=== PATIENT | female | born 2000 | race Caucasian/White ===

== ENCOUNTER 2023-06-27 08:00 | Outpatient (CLI) | payer OTHER ==
[2023-06-27 16:10] LABS: BILIRUBIN,URINE NEGATIVE (NEGATIVE); GLUCOSE, URINE (UA) NEGATIVE (NEGATIVE); KETONES,URINE (UA) NEGATIVE (NEGATIVE); LEUKOCYTE ESTERASE, URINE SMALL (NEGATIVE); NITRITE,URINE NEGATIVE (NEGATIVE); OCCULT BLOOD,URINE NEGATIVE (NEGATIVE); PH,URINE 7.5 PH (5.0-7.5); PROTEIN,URINE NEGATIVE (NEGATIVE); UROBILINOGEN,URINE 0.2 (NORMAL) E.U./dL (NORMAL)
[2023-06-27 16:31] LABS: BACTERIA,URINE Many /HPF (None Seen); CLARITY,URINE CLOUDY (CLEAR); RBC,URINE 0-5 /HPF (0-5); SQUAMOUS EPITHELIAL CELL,UR FEW Squamous (<= Few); WBC,URINE >25 /HPF (0-5)
== END 2023-06-27 23:59 | disposition home or self-care (01) ==
LOC: LAB.WC 08:00
PROVIDERS: ATTEND Obstetrics & Gynecology
DX: Z34.90 Encounter for supervision of normal pregnancy, unspecified, unspecified trimester (principal)
CPT/HCPCS: 81001; 87077; 87086

== ENCOUNTER 2023-07-12 18:31 | Outpatient (CLI) | payer OTHER ==
--- NOTE | 2023-07-13 09:04 | Ultrasound Report ---
PROCEDURE: OB First Trimester INDICATIONS: POSITIVE TEST OUTSIDE/PRIOR DATING DATA: Last menstrual period (LMP): 04/03/2023. LMP-based estimated date of delivery (JEROME): 01/08/2024. First dating scan (date and location): 07/12/2023. Estimated date of delivery (JEROME) from first dating scan: 01/26/2024. TECHNIQUE: Real-time scanning was performed of the fetus and maternal pelvic organs, with image documentation. COMPARISON: None. FINDINGS: Intrauterine gestational sac present. Embryo: [place]-rump length measures 4.97 cm, consistent with 11 weeks and 5 days. Heart rate: 164 bpm. Other: No perigestational fluid collection. Measurement variability in dating: +/- 4 weeks by LMP, +/- 7 days by mean sac diameter (use before 6 weeks gestation if crown-rump length not able to be measured), +/- 5 days by crown-rump length (6-12 weeks gestation). Maternal organs: Ovaries appear within normal limits. IMPRESSION: Single live intrauterine consistent with 11 weeks and 5 days. Reviewed by: Chino Monroy MD on 07/13/2023 9:03 AM PST Approved by: Chino Monroy MD on 07/13/2023 9:03 AM PST Station ID: [id number]
== END 2023-07-12 18:32 | disposition home or self-care (01) ==
LOC: DI 18:31
PROVIDERS: ATTEND Obstetrics & Gynecology
DX: Z34.91 Encounter for supervision of normal pregnancy, unspecified, first trimester (principal)

== ENCOUNTER 2023-07-16 05:01 | Outpatient (CLI) | payer OTHER | END 2023-07-19 07:20 | disposition home or self-care (01) | LOC: WFO 05:01 → FBP 07-19 07:13 → WFO 07-19 07:20 | PROVIDERS: ATTEND Obstetrics & Gynecology | DX: Z53.9 Procedure and treatment not carried out, unspecified reason (principal) ==

== ENCOUNTER 2023-07-19 07:21 | Emergency (ER) | payer OTHER ==
--- NOTE | 2023-07-19 07:29 | ED Physician Documentation ---
PD HPI NVD - Stated complaint Stated Complaint: NAUSEA/DIZZY - History obtained from History obtained from: Patient - History of Present Illness Timing - onset: Last night (Patient has had some head cold symptoms for the past week and a half. Plugging of the right ear with pressure and purulent nasal drainage. Onset of vertigo with repetitive nausea and vomiting last night continues to the morning.) Timing - duration: Hours (10) Timing - details: Abrupt onset Associated symptoms: Loss of appetite, Other (vertigo with movement). No: Fever, Abdominal pain Contributing factors: Travel (a week ago returned from visiting family. Noted ears plugged at that time.). No: Sick contact Improved by: Laying still. No: Vomiting Worsened by: Moving Similar symptoms before: Has not had sx before (Has had some related nausea particularly at night for the last several weeks. Using ondansetron as needed. No other current medications other than vitamins.) Review of Systems Constitutional: denies: Fever, Chills Ears: reports: Ear pain (right) Nose: reports: Rhinorrhea / runny nose, Sinus pressure / pain Throat: denies: Sore throat Respiratory: denies: Cough GI: denies: Abdominal Pain : reports: Now EGA (15). denies: Discharge, Vaginal bleeding PD PAST MEDICAL HISTORY - Past Medical History Cardiovascular: None Respiratory: None Endocrine/Autoimmune: None - Present Medications Home Medications: Ambulatory Orders Medication Instructions Recorded Confirmed Amoxicillin 500 mg PO TID #21 cap 07/19/23 Meclizine HCl [Motion Sickness] 25 mg PO Q6H PRN #30 tablet 07/19/23 Pyridoxine HCl (Vitamin B6) 25 mg PO TID #60 tablet 07/19/23 [Vitamin B-6] dexAMETHasone [Decadron] 4 mg PO DAILY #5 tablet 07/19/23 - Allergies Allergies/Adverse Reactions: Allergies Allergy/AdvReac Type Severity Reaction Status Date / Time No Known Drug Allergies Allergy Verified 07/19/23 07:39 PD ED PE NORMAL - Vitals Vital signs reviewed: Yes - General General: Alert and oriented X 3, Well developed/nourished, Other (repetitive vomiting, triggered more with head movement. ) - HEENT HEENT: No: Ears normal (left with fluid behind TM. Right with fluid and redness, with distorted landmarks. ) - Neck Neck: Supple, no meningeal sign, No adenopathy - Cardiac Cardiac: RRR, No murmur - Respiratory Respiratory: Clear bilaterally - Abdomen Abdomen: Soft, Non tender - Derm Derm: Normal color, Warm and dry Results - Vitals Vitals: Vital Signs - 24 hr 07/19/23 07/19/23 07:33 10:03 Temperature 36.2 C L Heart Rate 84 96 Respiratory 18 20 Rate Blood Pressure 118/84 H 97/62 O2 Saturation 100 97 Oxygen O2 Source Room air - Labs Labs: Laboratory Tests 07/19/23 07/19/23 07:53 07:53 WBC 7.7 RBC 4.36 Hgb 12.8 Hct 36.6 L MCV 83.9 MCH 29.4 MCHC 35.0 RDW 12.1 Plt Count 203 MPV 10.3 Neut # (Auto) 6.2 Lymph # (Auto) 1.2 L [place] # (Auto) 0.3 Eos # (Auto) 0.0 Baso # (Auto) 0.0 Absolute Nucleated RBC 0.00 Nucleated RBC % 0.0 Sodium 137 Potassium 3.5 Chloride 103 Carbon Dioxide 25 Anion Gap 9.0 BUN 10 Creatinine 0.6 Estimated GFR (MDRD) 127 Glucose 104 Calcium 9.5 Magnesium 1.7 Total Bilirubin 0.5 AST 18 ALT 26 Alkaline Phosphatase 58 Total Protein 7.3 Albumin 4.2 Globulin 3.1 Albumin/Globulin Ratio 1.4 Lipase 11 PD Medical Decision Making - ED course Complexity details: re-evaluated patient (reasonably well improved with IV fluids, Decadron, and PO meclizine. I did not give benzos due to (contraindicated in ).), considered differential ( and has had some nausea,e sp at nights. But now recent URI symptoms and having abrupt vertigo with position. Seems related to URI and inner ear dysfunction. ), d/w patient Departure - Departure Disposition: 01 Home, Self Care Clinical Impression: Nausea and vomiting, Volume depletion, Otitis media, Vertigo, Condition: Stable Record reviewed to determine appropriate education?: Yes Instructions: ED Otitis Media Acute Adult, ED Nausea Vomiting Follow-Up: Andrés Barnhart MD [Primary Care Provider] - [facility] [Provider Group] Prescriptions: Amoxicillin 500 mg PO TID #21 cap dexAMETHasone [Decadron] 4 mg PO DAILY #5 tablet Meclizine HCl [Motion Sickness] 25 mg PO Q6H PRN #30 tablet PRN Reason: Vertigo Pyridoxine HCl (Vitamin B6) [Vitamin B-6] 25 mg PO TID #60 tablet Comments: You were vertigo is likely originating from fluid pressure and infection in the middle and inner ear. It should improve as the inflammation and infection improve. Amoxicillin 3 times daily for the next week and Decadron steroid anti- inflammatory daily for 5 more days. For the vertigo and dizziness/nausea, use meclizine 25 mg every 6-8 hours if needed. I would suggest using it regularly 3 times a day for the next 2 to 3 days to decrease the symptoms and then changed to as needed. Regarding nausea in and general, you can add vitamin B6 2-3 times daily to help with that. Continue with the previous ondansetron/Zofran if needed for nausea as well. I sent your prescriptions to [facility]. Off work today and tomorrow. See how you feel today after that regarding back to activity. I would anticipate considerable improvement over the next 2 to 3 days and resolution by 3 to 5 days. Follow-up with your primary care or return to the ER if worsening again. Forms: Activity restrictions Discharge Date/Time: 07/19/23 10:10
[2023-07-19] MEDS ORDERED: ONDANSETRON 4 MG/2 ML VIAL IVP STA (07:46)
[2023-07-19] MEDS ORDERED: SODIUM CHLORIDE 0.9% 1,000 ML IV STA (07:46)
[2023-07-19] MEDS ORDERED: DEXAMETHASONE 10 MG/ML VIAL IVP STA (07:47)
[2023-07-19] MEDS ORDERED: MECLIZINE 12.5 MG TABLET PO STA (07:47)
[2023-07-19] MEDS ORDERED: FAMOTIDINE 20 MG/2 ML VIAL IVP STA (07:48)
[2023-07-19 08:02] LABS: BASOPHILS % (AUTO) 0.1 %; EOSINOPHILS % (AUTO) 0.1 %; HCT - HEMATOCRIT 36.6 % (37.0-47.0); HGB - HEMOGLOBIN 12.8 g/dL (12.0-16.0); LYMPHOCYTES # (AUTO) 1.2 10^3/uL (1.5-3.5); LYMPHOCYTES % (AUTO) 15.1 %; MEAN CORPUSCULAR HEMOGLOBIN 29.4 pg (27.0-31.0); MEAN CORPUSCULAR VOLUME 83.9 fL (81.0-99.0); MEAN PLATELET VOLUME 10.3 fL (7.9-10.8); MONOCYTES # (AUTO) 0.3 10^3/uL (0.0-1.0); MONOCYTES % (AUTO) 3.9 %; NEUTROPHILS # (AUTO) 6.2 10^3/uL (1.5-6.6); NEUTROPHILS % (AUTO) 80.4 %; PLT - PLATELET COUNT 203 10^3/uL (130-450); RED BLOOD COUNT 4.36 10^6/uL (4.20-5.40); RED CELL DISTRIBUTION WIDTH 12.1 % (12.0-15.0); WHITE BLOOD COUNT 7.7 x10^3/uL (4.8-10.8)
[2023-07-19 08:19] LABS: ALBUMIN 4.2 g/dL (3.2-5.5); ALBUMIN/GLOBULIN RATIO 1.4 (1.0-2.2); BILIRUBIN,TOTAL 0.5 mg/dL (0.2-1.0); CALCIUM 9.5 mg/dL (8.5-10.3); CREATININE 0.6 mg/dL (0.6-1.3); MAGNESIUM 1.7 mg/dL (1.7-2.3); POTASSIUM 3.5 mmol/L (3.5-4.5); TOTAL PROTEIN 7.3 g/dL (6.4-8.9)
[2023-07-19] MEDS ORDERED: LACTATED RINGERS 1,000 ML IV STA (08:23)
[2023-07-19] MEDS ORDERED: PROMETHAZINE INJ 12.5 MG in SODIUM CHLORIDE 0.9% 50 ML IV STA (08:29)
[2023-07-19] MEDS ORDERED: PROMETHAZINE 25 MG/1 ML VIAL ONE (08:42)
[2023-07-19] MEDS ORDERED: AMOXICILLIN 250 MG CAPSULE PO STA (09:53)
[2023-07-19 10:08] VITALS: BP 97/62; O2SAT 97
== END 2023-07-19 10:10 | disposition home or self-care (01) ==
LOC: ED 07:21
DX: O26.892 Other specified pregnancy related conditions, second trimester (principal); R42 Dizziness and giddiness; O99.891 Other specified diseases and conditions complicating pregnancy; H66.91 Otitis media, unspecified, right ear; Z3A.15 15 weeks gestation of pregnancy
CPT/HCPCS: 36415; 80053; 83690; 83735; 85025; 96365; 96375; 99283; 99284; A9270; J7040; J7120

== ENCOUNTER 2023-07-23 08:00 | Outpatient (CLI) | payer OTHER ==
[2023-07-23 18:20] LABS: CHLAMYDIA TRACHOMATIS DNA NEGATIVE (NEGATIVE); NEISSERIA GONORRHOEAE DNA NEGATIVE (NEGATIVE); TRICHOMONAS VAGINALIS DNA NEGATIVE (NEGATIVE)
== END 2023-07-23 23:59 | disposition home or self-care (01) ==
LOC: LAB.WC 08:00
PROVIDERS: ATTEND Nurse Practitioner
DX: Z34.90 Encounter for supervision of normal pregnancy, unspecified, unspecified trimester (principal)
CPT/HCPCS: 36415; 81001; 85025; 86592; 86762; 86787; 86803; 86850; 86900; 86901; 87086; 87340; 87389; 87491; 87591; 87661

== ENCOUNTER 2023-07-23 11:27 | Outpatient (CLI) | payer OTHER ==
[2023-07-23 11:42] LABS: BASOPHILS % (AUTO) 0.3 %; EOSINOPHILS % (AUTO) 0.4 %; HCT - HEMATOCRIT 33.7 % (37.0-47.0); HGB - HEMOGLOBIN 11.5 g/dL (12.0-16.0); LYMPHOCYTES % (AUTO) 36.7 %; MEAN CORPUSCULAR HEMOGLOBIN 29.2 pg (27.0-31.0); MEAN CORPUSCULAR HGB CONC 34.1 g/dL (32.0-36.0); MEAN CORPUSCULAR VOLUME 85.5 fL (81.0-99.0); MEAN PLATELET VOLUME 10.8 fL (7.9-10.8); MONOCYTES # (AUTO) 0.7 10^3/uL (0.0-1.0); MONOCYTES % (AUTO) 6.8 %; NEUTROPHILS # (AUTO) 5.9 10^3/uL (1.5-6.6); PLT - PLATELET COUNT 249 10^3/uL (130-450); RED BLOOD COUNT 3.94 10^6/uL (4.20-5.40); RED CELL DISTRIBUTION WIDTH 12.1 % (12.0-15.0); WHITE BLOOD COUNT 10.8 x10^3/uL (4.8-10.8)
[2023-07-23 11:50] LABS: BILIRUBIN,URINE NEGATIVE (NEGATIVE); GLUCOSE, URINE (UA) NEGATIVE (NEGATIVE); KETONES,URINE (UA) NEGATIVE (NEGATIVE); LEUKOCYTE ESTERASE, URINE TRACE (NEGATIVE); NITRITE,URINE NEGATIVE (NEGATIVE); OCCULT BLOOD,URINE NEGATIVE (NEGATIVE); PROTEIN,URINE TRACE mg/dL (NEGATIVE); UROBILINOGEN,URINE 1 (NORMAL) E.U./dL (NORMAL)
[2023-07-23 11:52] LABS: CLARITY,URINE CLEAR (CLEAR)
[2023-07-23 11:58] LABS: BACTERIA,URINE Few /HPF (None Seen); RBC,URINE 0-5 /HPF (0-5); SQUAMOUS EPITHELIAL CELL,UR MANY Squamous (<= Few); WBC,URINE 0-3 /HPF (0-5)
[2023-07-24 05:12] LABS: HBsAG SCREEN Negative (Negative)
[2023-07-24 06:10] LABS: RPR Non Reactive (Non Reactive)
[2023-07-24 08:10] LABS: HCV AB Non Reactive (Non Reactive)
[2023-07-24 09:09] LABS: HIV SCREEN 4TH GENERATION Non Reactive (Non Reactive); VARICELLA-ZOSTER AB IGG 172 index (Immune >165)
== END 2023-07-23 11:28 | disposition home or self-care (01) ==
LOC: LAB 11:27
PROVIDERS: ATTEND Obstetrics & Gynecology
DX: Z34.90 Encounter for supervision of normal pregnancy, unspecified, unspecified trimester (principal)
CPT/HCPCS: 36415; 81001; 85025; 86592; 86762; 86787; 86803; 86850; 86900; 86901; 87086; 87340; 87389

== ENCOUNTER 2023-08-06 08:00 | Outpatient (CLI) | payer OTHER ==
[2023-08-06 16:48] LABS: BILIRUBIN,URINE NEGATIVE (NEGATIVE); GLUCOSE, URINE (UA) NEGATIVE (NEGATIVE); KETONES,URINE (UA) NEGATIVE (NEGATIVE); LEUKOCYTE ESTERASE, URINE NEGATIVE (NEGATIVE); NITRITE,URINE NEGATIVE (NEGATIVE); OCCULT BLOOD,URINE NEGATIVE (NEGATIVE); PH,URINE 6.5 PH (5.0-7.5); PROTEIN,URINE NEGATIVE (NEGATIVE); UROBILINOGEN,URINE 0.2 (NORMAL) E.U./dL (NORMAL)
[2023-08-06 16:52] LABS: CLARITY,URINE CLEAR (CLEAR)
[2023-08-06 19:50] LABS: BACTERIAL VAGINOSIS DNA NEGATIVE (NEGATIVE); CANDIDA GLABRATA DNA NEGATIVE (NEGATIVE); CANDIDA GROUP DNA POSITIVE (NEGATIVE); CANDIDA KRUSEI DNA NEGATIVE (NEGATIVE); TRICHOMONAS VAGINALIS DNA NEGATIVE (NEGATIVE)
== END 2023-08-06 23:59 | disposition home or self-care (01) ==
LOC: LAB.WC 08:00
PROVIDERS: ATTEND Nurse Practitioner
DX: R35.0 Frequency of micturition (principal); L29.8 Other pruritus
CPT/HCPCS: 81001; 81003; 81514; 87086

== ENCOUNTER 2023-08-28 15:22 | Outpatient (CLI) | payer OTHER ==
[2023-08-31 21:07] LABS: AFP VALUE 46.5 ng/mL (.); DIA MOM 1.05 (.); DSR (BY AGE) 1 IN 1148 (.); DSR (SECOND TRIMESTER) 1 IN 265 (.); GESTAT. AGE METHOD Ultrasound (.); HCG MOM 5.09 (.); HCG VALUE 126902 mIU/mL (.); INSULIN DEP DIABETES No (.); MULTIPLE GESTATION No (.); OPEN SPINA BIFIDA RISK 1 IN 10000 (.); RACE Caucasian (.); RESULTS Report (.); TEST RESULTS *Screen Positive* (.); TRISOMY 18 RISK Not increased (.); UE3 MOM 0.52 (.); UE3 VALUE 1.46 ng/mL (.); WEIGHT 147 lbs (.)
== END 2023-08-28 15:23 | disposition home or self-care (01) ==
LOC: LAB 15:22
PROVIDERS: ATTEND Nurse Practitioner
DX: Z34.90 Encounter for supervision of normal pregnancy, unspecified, unspecified trimester (principal)
CPT/HCPCS: 36415; 81511

== ENCOUNTER 2023-09-27 12:12 | Outpatient (CLI) | payer OTHER ==
[2023-09-27 13:49] LABS: BASOPHILS % (AUTO) 0.2 %; EOSINOPHILS # (AUTO) 0.1 10^3/uL (0.0-0.7); EOSINOPHILS % (AUTO) 0.5 %; HCT - HEMATOCRIT 31.7 % (37.0-47.0); HGB - HEMOGLOBIN 10.6 g/dL (12.0-16.0); LYMPHOCYTES # (AUTO) 1.7 10^3/uL (1.5-3.5); LYMPHOCYTES % (AUTO) 17.8 %; MEAN CORPUSCULAR HEMOGLOBIN 29.7 pg (27.0-31.0); MEAN CORPUSCULAR HGB CONC 33.4 g/dL (32.0-36.0); MEAN CORPUSCULAR VOLUME 88.8 fL (81.0-99.0); MEAN PLATELET VOLUME 10.6 fL (7.9-10.8); MONOCYTES # (AUTO) 0.7 10^3/uL (0.0-1.0); MONOCYTES % (AUTO) 7.7 %; NEUTROPHILS # (AUTO) 6.9 10^3/uL (1.5-6.6); NEUTROPHILS % (AUTO) 73.2 %; PLT - PLATELET COUNT 182 10^3/uL (130-450); RED BLOOD COUNT 3.57 10^6/uL (4.20-5.40); RED CELL DISTRIBUTION WIDTH 12.8 % (12.0-15.0); WHITE BLOOD COUNT 9.4 x10^3/uL (4.8-10.8)
[2023-09-27 14:01] LABS: CALCIUM 8.7 mg/dL (8.5-10.3); CREATININE 0.5 mg/dL (0.6-1.3); POTASSIUM 3.5 mmol/L (3.5-4.5)
[2023-09-27] MEDS: ONDANSETRON ODT 4 MG TABLET TL PRN (14:36)
[2023-09-27 14:51] LABS: BILIRUBIN,URINE NEGATIVE (NEGATIVE); CLARITY,URINE SL. CLOUDY (CLEAR); GLUCOSE, URINE (UA) NEGATIVE (NEGATIVE); KETONES,URINE (UA) NEGATIVE (NEGATIVE); LEUKOCYTE ESTERASE, URINE NEGATIVE (NEGATIVE); NITRITE,URINE NEGATIVE (NEGATIVE); OCCULT BLOOD,URINE NEGATIVE (NEGATIVE); PROTEIN,URINE NEGATIVE (NEGATIVE); UROBILINOGEN,URINE 0.2 (NORMAL) E.U./dL (NORMAL)
--- NOTE | 2023-09-27 15:18 | PROVIDER PROGRESS NOTE ---
- HPI Chief Complaint: GI symptoms Current : Vital Signs Temperature 97.9 F 09/27/23 16:20 Temperature 97.9 F 09/27/23 16:20 Heart Rate Respiratory Rate Blood Pressure O2 Saturation If not protocol: Oxygen Flow, liters/minute - Procedures Procedure Details: Patient is a 22-year at 22 weeks gestation presenting for nausea and vomiting since last night. Has not been able to keep anything down. Did try 1 dose of ondansetron around 0300 but did not work so she did not take anymore. She feels good movement. No diarrhea. No fever or chills. Partner is deployed. No sick contacts that she is aware of. No contractions, leaking, bleeding. Physical Exam Constitutional: alert, no acute distress, well hydrated, well developed, well nourished, appropriate dress. Cardiovascular: Regular rate and rhythm. Respiratory: no respiratory distress. Abdomen: Gravid, nondistended, nontender, no guarding. Psych: affect and mood appropriate, normal interaction, good eye contact. Labs: WBC: 9.4, potassium: 3.5, sodium: 135. Urine is unremarkable with specific gravity 1.020. heart tracin bpm, appropriate for gestational age [place]: Quiescent 22-year-old G1, P0 at 22 weeks gestation with acute gastroenteritis 1. Gastroenteritis -Discussed this is usually lasting approximate 24 hours for most patient is currently. -Encourage small frequent sips of water. Can tolerate some time without food. He is not showing signs of dehydration right now, so she will likely be fine. Can contact us tomorrow if still problematic, however she will likely feeling much better by the morning. -Sent prescription for promethazine that she can try if the ondansetron does not work. Was able to tolerate some p.o. Intake 2. 22 weeks gestation -Follow-up for routine obstetrical care.
[2023-09-27] MEDS: PROMETHAZINE 25 MG TABLET PO STA (15:30)
[2023-09-27 16:00] LABS: AMORPHOUS SEDIMENT,UR Marked /LPF; BACTERIA,URINE Rare /HPF (None Seen); CRYSTALS,URINE 0-2 Calcium Oxalate /LPF; RBC,URINE 0-5 /HPF (0-5); SQUAMOUS EPITHELIAL CELL,UR FEW Squamous (<= Few); WBC,URINE 0-3 /HPF (0-5)
== END 2023-09-27 15:38 | disposition home or self-care (01) ==
LOC: ED 12:12 → WFO 12:12 → FBP 12:12 → EDSTATUS 13:09 → WFO 15:38
PROVIDERS: ATTEND Obstetrics & Gynecology
DX: O99.612 Diseases of the digestive system complicating pregnancy, second trimester (principal); K52.9 Noninfective gastroenteritis and colitis, unspecified; Z3A.22 22 weeks gestation of pregnancy
CPT/HCPCS: 36415; 80048; 81001; 85025; 99213; Q0162; Q0169; 87086; 99215

== ENCOUNTER 2023-10-15 10:30 | Outpatient (CLI) | payer OTHER ==
[2023-10-15 11:37] LABS: HCT - HEMATOCRIT 35.1 % (37.0-47.0); HGB - HEMOGLOBIN 11.7 g/dL (12.0-16.0); MEAN CORPUSCULAR HEMOGLOBIN 29.3 pg (27.0-31.0); MEAN CORPUSCULAR HGB CONC 33.3 g/dL (32.0-36.0); MEAN PLATELET VOLUME 10.4 fL (7.9-10.8); RED BLOOD COUNT 3.99 10^6/uL (4.20-5.40); RED CELL DISTRIBUTION WIDTH 12.3 % (12.0-15.0); WHITE BLOOD COUNT 9.7 x10^3/uL (4.8-10.8)
== END 2023-10-15 10:31 | disposition home or self-care (01) ==
LOC: LAB 10:30
PROVIDERS: ATTEND Nurse Practitioner
DX: O09.892 Supervision of other high risk pregnancies, second trimester (principal)
CPT/HCPCS: 36415; 82950; 85027

== ENCOUNTER 2023-10-19 08:00 | Outpatient (CLI) | payer OTHER ==
[2023-10-19 23:52] LABS: BACTERIAL VAGINOSIS DNA NEGATIVE (NEGATIVE); CANDIDA GLABRATA DNA NEGATIVE (NEGATIVE); CANDIDA GROUP DNA NEGATIVE (NEGATIVE); CANDIDA KRUSEI DNA NEGATIVE (NEGATIVE); TRICHOMONAS VAGINALIS DNA NEGATIVE (NEGATIVE)
== END 2023-10-19 23:59 | disposition home or self-care (01) ==
LOC: LAB.WC 08:00
PROVIDERS: ATTEND Nurse Practitioner
DX: L29.8 Other pruritus (principal)
CPT/HCPCS: 81514

== ENCOUNTER 2023-11-21 09:26 | Observation (INO) | payer OTHER ==
[2023-11-21] MEDS ORDERED: LACTATED RINGERS 1,000 ML ONE (09:49)
[2023-11-21] MEDS ORDERED: LACTATED RINGERS 1,000 ML IV SCH (10:00)
[2023-11-21 10:10] LABS: BASOPHILS % (AUTO) 0.2 %; EOSINOPHILS # (AUTO) 0.1 10^3/uL (0.0-0.7); EOSINOPHILS % (AUTO) 0.4 %; HCT - HEMATOCRIT 32.9 % (37.0-47.0); LYMPHOCYTES # (AUTO) 1.8 10^3/uL (1.5-3.5); LYMPHOCYTES % (AUTO) 14.3 %; MEAN CORPUSCULAR HEMOGLOBIN 28.3 pg (27.0-31.0); MEAN CORPUSCULAR HGB CONC 33.4 g/dL (32.0-36.0); MEAN CORPUSCULAR VOLUME 84.6 fL (81.0-99.0); MEAN PLATELET VOLUME 10.8 fL (7.9-10.8); MONOCYTES # (AUTO) 0.8 10^3/uL (0.0-1.0); MONOCYTES % (AUTO) 6.4 %; NEUTROPHILS # (AUTO) 9.7 10^3/uL (1.5-6.6); NEUTROPHILS % (AUTO) 77.9 %; PLT - PLATELET COUNT 192 10^3/uL (130-450); RED BLOOD COUNT 3.89 10^6/uL (4.20-5.40); RED CELL DISTRIBUTION WIDTH 12.9 % (12.0-15.0); WHITE BLOOD COUNT 12.5 x10^3/uL (4.8-10.8)
[2023-11-21] MEDS ORDERED: ONDANSETRON 4 MG/2 ML VIAL IVP PRN (10:20)
[2023-11-21] MEDS: LACTATED RINGERS 1,000 ML IV ONE (10:25)
[2023-11-21 10:27] LABS: INR 1.1 (0.8-1.2)
[2023-11-21 10:46] LABS: PARTIAL THROMBOPLASTIN TIME 22.7 secs (24.9-33.3)
[2023-11-21 10:47] VITALS: BP 121/76
[2023-11-21] MEDS ORDERED: CALCIUM GLUC IV ONE (11:25)
[2023-11-21] MEDS ORDERED: [UNRECOGNIZED DRUG - OTHER] IV ONE (11:25)
[2023-11-21] MEDS: MAGNESIUM SULFATE 4 GRAM 4 GM/50 ML BAG IV ONE (11:34)
--- NOTE | 2023-11-21 11:50 | HISTORY & PHYSICAL EXAMINATION ---
Admit History - Visit Reason Visit Reason: Bleeding - moderate (and contractions) - : 1 Care: positive: [facility] Risk/History: positive: None Complications This : positive: Placental abruption Smoking Status: Never smoker - Mother's Labs Mother's Blood Type: positive: O Mother's RH: positive: Positive GBS: positive: Other (not done yet) Rubella Status: positive: Immune - Other Maternal History Other Maternal History: presents with bleeding, soaked thru her clothes. came in for evaluation. still flowing on arrival. has not felt baby move much in past day but reactive tracing here. feels some strong contractions. thought the were just marianna Cantu. no dizziness. Past Surgical History: Reviewed and updated today: Tonsellectomy surgical drainage of skin abscess on nipple from piercing. 04/2023 Medical history only mental health issues. Medications: pepcid, zofran zoloft 100 mg daily, vitamins, iron allergies: none OB Initial Intake Information Race: White Marital status: Single Occupation: outside work Type of work: [employer] Number of children at home: 0 FOB Information /Father of baby: Shelton Avila FOB occupation [employer] Menstrual Hx/EDC LMP (date): 04/03/2023 Menarche: 15 years Menstrual flow 7 days On BCP's at conception: no Date of positive (+) home preg. test: 05/20/2023 LMP: 04/03/2023 JEROME by LMP: 01/08/2024 07/12/2023 /11+5 / NOT C/W dates Final JEROME: 01/26/2024 sex: It's a GIRL!!! FOB: Shelton Avila, not . He is deployed on the [employer] in [place]. she is also active duty [place]. from [place] chorioid plexus cysts found on non-diagnostic u/s, appears to be resolved at time of FAS. Confirmed with on-site radiologist. Pre- Weight:144.8 BMI: 22.10 Blood type: O+ Rh: Positive Antibody: NEGATIVE CBC: PLT 249 HCT: 33.7 HGB 11.5 RUB: IMMUNE VZV: IMMUNE HBsAg: NEGATIVE HepC: NR RPR/AB-EIA: NR HIV: NR PAP: Pap @ PP GC/CT: 07/23/2023 Negative HSV:Denies in self and partner Genetic testin/13 QUAD screen negative Covid:virus x2 vax x2 Flu:2022 FAS: 09/18/2023 Placenta: Anterior Cord: 3VC FRANK: 13.5cm EFW: 386g; 20.5 %tile 50gm OGCT: 10/15/23: 106 3HR GTT: TDAP:10/31 Breast Pump:10/31 Antibody screen: 3rd trimester PLT 214 HCT 35.1 HGB 11.7 3rd trimester HIV GBS: Delivery plan: MOD: [facility]24 Gestation 30 Weeks and 4 Days 1 Para 0 Vital Signs Temperature 97.7 F 11/21/23 09:33 Heart Rate 89 11/21/23 09:33 Respiratory Rate 18 11/21/23 09:33 Blood Pressure 137/85 H 11/21/23 09:33 Temperature 97.7 F 11/21/23 10:38 Heart Rate 97 11/21/23 10:38 Respiratory Rate 18 11/21/23 10:38 Blood Pressure 121/76 11/21/23 10:38 O2 Saturation If not protocol: Oxygen Flow, liters/minute - NST Procedure NST Procedure Start Date 11/21/23 Start Time 09:32 Stop Time 10:02 Vibroacoustic Stimulation Used No Patient States Movement Yes Meds/Allgy - Home Medications Home Medications: Ambulatory Orders Medication Instructions Recorded Confirmed Amoxicillin 500 mg PO TID #21 cap 07/19/23 Meclizine HCl [Motion Sickness] 25 mg PO Q6H PRN #30 tablet 07/19/23 Pyridoxine HCl (Vitamin B6) 25 mg PO TID #60 tablet 07/19/23 [Vitamin B-6] dexAMETHasone [Decadron] 4 mg PO DAILY #5 tablet 07/19/23 Promethazine Supp [Phenergan Supp] 12.5 mg SC Q6HR PRN #10 supp 09/27/23 - Allergies Allergies/Adverse Reactions: Allergies Allergy/AdvReac Type Severity Reaction Status Date / Time No Known Drug Allergies Allergy Verified 07/19/23 07:39 Physical - Abdominal Exam Vital Signs: Temp Pulse Resp BP Pulse Ox O2 Flow Rate 97.7 F 97 18 121/76 11/21/23 10:38 11/21/23 10:38 11/21/23 10:38 11/21/23 10:38 Contraction Frequency (min/apart): q 2-3 Contraction Intensity: positive: Mild Uterine Resting Tone: positive: Soft - Monitoring Strip Review: positive: Category I - Presentation Presentation: positive: Vertex - Vaginal Exam Membranes: positive: Membranes intact Dilation (in cm): closed Effacement (%): thin and very soft Station: positive: -1 Cervical Position: positive: Midposition - Speculum Exam Speculum Exam Performed: positive: No - Other Notes Labor Progress Note/Additional Text: uncomfortable with contractions. Plan for Labor - Plan For Labor I expect patient to be DC'd or transferred within 96 hours.: Yes Plan for Labor: Ultrasound with growth at 6%ile. AC is small 3.7%. BPD and head circ are normal placenta with area consistent with abruption about 5.8 x 4.1 cm. per radiologist. Assessment: placental abruption at 30 weeks. Urgent transfer to by helicopter. Betamethasone given. Magnesium 4 gm load and then 2 gm an hour. discussed with Trena Harden MD. 2 IVs. cervix closed.
--- NOTE | 2023-11-21 11:53 | Ultrasound Report ---
PROCEDURE: OB Follow up INDICATIONS: bleeding at 30 wk. check weight, fluid, placenta OUTSIDE/PRIOR DATING DATA: Last menstrual period (LMP): 04/03/2023. LMP-based estimated date of delivery (JEROME): 01/08/2024. First dating scan (date and location): 07/12/2023. Estimated date of delivery (JEROME) from first dating scan: 01/26/2024. The below data below was generated using the working JEROME of 01/26/2024. TECHNIQUE: Real-time scanning was performed of the fetus, with image documentation and biometric measurements. Endovaginal scanning: Not performed. COMPARISON: OB ultrasound, 09/18/2023 and 07/04/2023.. FINDINGS: General: A single living intrauterine gestation is present. Presentation: Vertex Placenta: Placental position is anterior, without previa. The inferior edge of the placenta is sligh tly lifted. There is a heterogeneous, avascular mass adjacent to the inferior aspect of placenta, com patible with a hematoma. The findings are suspicious for placental abruption. Amniotic fluid index: 14.7 cm, largest pocket 4.3 cm. heart rate: 147 beats per minute. Maternal cervical canal: Closed measuring 3.2 cm long; normal length is 2.5 cm or more. biometrics: Biparietal diameter: 7.9 cm; 32 weeks 0 days; 80.7% Head circumference: 29.1 cm; 32 weeks 1 day; 59.8% Abdominal circumference: 24.2 cm; 28 weeks; 3.7% Femur length: 5.4 cm; 28 weeks 5 days; 3.9% Estimated gestational age from initial scan: 30 weeks 4 days. Composite gestational age from present scan: 30 weeks 2 days Estimated weight and percentile: 1345.1 g; 6.4% for gestational age. Measurement variability in biometric dating: +/- 10 days from 12-20 weeks gestation, +/- 2 weeks from 20-30 weeks gestation, +/- 3 weeks at 30 weeks gestation or more. IMPRESSION: 1. A single living IUP is redemonstrated. 2. The ultrasound findings are suspicious for placenta abruption. There is a heterogeneous, avascular mass adjacent to the inferior aspect of the placenta, compatible with a hematoma. 3. The overall growth is within normal limits. 4. Abdominal circumference and femur length are at 3.7% and 3.9% respectively. 5. The estimated weight is 6.4% for gestational age. 6. Normal FRANK. The result was discussed with Dr. Katz. Reviewed by: Sunshine Heath MD on 11/21/2023 11:52 AM PDT Approved by: Sunshine Heath MD on 11/21/2023 11:52 AM PDT Station ID: [id number]
[2023-11-21] MEDS: BETAMETHASONE 30 MG/5 ML VIAL IM ONE (11:54)
[2023-11-21] MEDS: MAGNESIUM SULFATE IN WATER 20 GM/500 ML IV.SOLN IV SCH (11:55)
--- NOTE | 2023-11-21 19:37 | DISCHARGE SUMMARY ---
"Discharge Summary Admit Date: 11/21/23 Discharge Date: 11/21/23 Discharging Provider: Conchita Katz MD Code Status: Attempt Resuscitation Condition at Discharge: Stable Discharge Disposition: 02 Transfer Acute Care Hosp Discharge Facility Name: [facility] - DIAGNOSES Admission Diagnoses: placental abruption at 30 weeks Discharge Diagnoses with Status of Each Condition: placenta abruption at 30 weeks. stable at time of transfer with reassuring well being. baby with growth restriction at 6th%ile - HPI History of Present Illness: sitting in class today and started bleeding. no trauma. denies drug use. Came to hospital. was otherwise uncomplicated. - CONSULTS | PROCEDURES Procedures: iv hydration and medications - HOSPITAL COURSE Hospital Course: patient was admitted for observation and assessed. She and baby were both stable. She was segundo about every 2-3 minutes. She was painful with contractions. Bleeding continued but was not excessive, just way more than nor mal. IV magnesium was started. betamethasone was given. transfer to was arranged and she was sent by helicopter. prior to leaving her cervix was closed but cervix was thin and JORDANA was bulging and very soft. labs were pretty normal. Ultrasound was done and showed baby was small and that there was a clot consistent with abruption. - ALLERGIES Allergies/Adverse Reactions: Allergies Allergy/AdvReac Type Severity Reaction Status Date / Time No Known Drug Allergies Allergy Verified 07/19/23 07:39 - MEDICATIONS Home Medications: Ambulatory Orders Medication Instructions Recorded Confirmed Amoxicillin 500 mg PO TID #21 cap 07/19/23 Meclizine HCl [Motion Sickness] 25 mg PO Q6H PRN #30 tablet 07/19/23 Pyridoxine HCl (Vitamin B6) 25 mg PO TID #60 tablet 07/19/23 [Vitamin B-6] dexAMETHasone [Decadron] 4 mg PO DAILY #5 tablet 07/19/23 Promethazine Supp [Phenergan Supp] 12.5 mg GA Q6HR PRN #10 supp 09/27/23 - PHYSICAL EXAM AT DISCHARGE General Appearance: positive: No acute distress Respiratory: positive: No respiratory distress Cardiovascular: positive: Regular rate & rhythm Abdomen: positive: Non-tender Extremities: positive: Non-tender Neurologic/Psychiatric: positive: Oriented x3 - LABS Result Diagrams: 11/21/23 09:58 - DIAGNOSTIC IMAGING Diagnostic Imaging Results: Final report reviewed, Discussed with radiologist, Read independently - FOLLOW UP Follow Up: after [facility] discharge as needed. - TIME SPENT Time Spent in Discharge (Minutes): 90"
[2023-11-22 13:11] LABS: RPR Non Reactive (Non Reactive)
== END 2023-11-21 12:15 | disposition home or self-care (01) ==
LOC: WFO 09:26 → FBP 09:32 → WFO 09:36 → FBP 09:37 → WFO 12:15
PROVIDERS: ADMIT Obstetrics & Gynecology; ATTEND Obstetrics & Gynecology
DX: O45.93 Premature separation of placenta, unspecified, third trimester (principal); Z3A.30 30 weeks gestation of pregnancy; Z91.85 Personal history of military service; Z11.3 Encounter for screening for infections with a predominantly sexual mode of transmission
CPT/HCPCS: 36415; 76816; 85025; 85384; 85610; 85730; 86592; 86850; 86900; 86901; 96365; 96372; G0378; J7120; 59025; 85460; 86780; 96376; J3475

== ENCOUNTER 2023-11-28 09:40 | Emergency (ER) | payer OTHER ==
--- NOTE | 2023-11-28 10:26 | ED Physician Documentation ---
PD HPI ABD PAIN - Stated complaint Stated Complaint: CHEST PX,VOMITING - Chief complaint Chief Complaint: Abd Pain - History obtained from History obtained from: Patient - Additional information Additional information: G1, P0 at 31 weeks has been having increasing trouble with GERD and heartburn in this . Over the last couple days has had severe heartburn with random vomiting. She is just vomiting up stomach acid and is not nauseous per se. [facility] for bleeding which has resolved. Positive motion. PD PAST MEDICAL HISTORY - Past Medical History Cardiovascular: None Respiratory: None Endocrine/Autoimmune: None - Past Surgical History Past Surgical History: No - Present Medications Home Medications: Ambulatory Orders Medication Instructions Recorded Confirmed Omeprazole 40 mg PO DAILY #30 cap 11/28/23 Pnv No.95/Ferrous Fum/Folic AC 1 tab PO DAILY 11/28/23 11/28/23 [ [place]] Sertraline HCl 100 mg PO DAILY 11/28/23 11/28/23 Sucralfate [Carafate] 1 gm PO ACHS #60 tablet 11/28/23 - Allergies Allergies/Adverse Reactions: Allergies Allergy/AdvReac Type Severity Reaction Status Date / Time No Known Drug Allergies Allergy Verified 11/28/23 09:48 - Social History Does the pt smoke?: No Smoking Status: Never smoker Does the pt drink ETOH?: No Does the pt have substance abuse?: No - Immunizations Immunizations are current?: Yes - POLST Patient has POLST: No PD ED PE NORMAL - Vitals Vital signs reviewed: Yes - General General: Alert and oriented X 3, No acute distress - Cardiac Cardiac: RRR, No murmur - Respiratory Respiratory: No respiratory distress, Clear bilaterally - Abdomen Abdomen: Non tender, Other (Bedside ultrasound demonstrates single live intrauterine with heart rate 144) - Derm Derm: Normal color, Warm and dry - Neuro Neuro: Alert and oriented X 3 Results - Vitals Vitals: Vital Signs - 24 hr 11/28/23 09:43 Temperature 36.0 C L Heart Rate 129 H Respiratory 20 Rate Blood Pressure 125/82 H O2 Saturation 98 Oxygen O2 Source Room air - EKG (time done) 1005 EKG releavant findings:: EKG personally interpreted by author of this note. Relevant findings are: Rate: Rate (enter#) (96) Rhythm: NSR [place]: Normal Intervals: Normal CA QRS: Normal Ischemia: Normal ST segments - Labs Labs: Laboratory Tests 11/28/23 11/28/23 10:30 10:30 WBC 13.6 H RBC 3.79 L Hgb 10.7 L Hct 32.0 L MCV 84.4 MCH 28.2 MCHC 33.4 RDW 13.5 Plt Count 189 MPV 10.7 Neut # (Auto) 10.0 H Lymph # (Auto) 1.8 [place] # (Auto) 1.3 H Eos # (Auto) 0.1 Baso # (Auto) 0.0 Absolute Nucleated RBC 0.00 Nucleated RBC % 0.0 Sodium 133 L Potassium 3.7 Chloride 104 Carbon Dioxide 23 Anion Gap 6.0 BUN 10 Creatinine 0.5 L Estimated GFR (MDRD) 157 Glucose 89 Calcium 9.4 Total Bilirubin 0.3 AST 16 ALT 15 Alkaline Phosphatase 82 Total Protein 6.4 Albumin 3.7 Globulin 2.7 Albumin/Globulin Ratio 1.4 PD Medical Decision Making - ED course ED course: She presents for what sounds like reflux in . She has chest pain so PE was considered especially since she is and tachycardic. That seems less likely now as she is not short of breath. After the administration of a GI cocktail her pain resolved as did her tachycardia so PE is deemed much less likely. CBC showing expected changes of specifically mild leukocytosis and anemia. CMP grossly unremarkable. She was administered IV fluids and Protonix as well here. Departure - Departure Disposition: Home, Self Care Clinical Impression: Gastroesophageal reflux disease Condition: Good Record reviewed to determine appropriate education?: Yes Instructions: ED GERD Prescriptions: Sucralfate [Carafate] 1 gm PO ACHS #60 tablet Omeprazole 40 mg PO DAILY #30 cap Comments: Follow-up with your nurse practitioner on Sunday as scheduled. Return for new or worsening symptoms. [facility] [place]. Forms: PCP List
[2023-11-28] MEDS: SODIUM CHLORIDE 0.9% 1,000 ML IV STA ×2 (10:30→11:07)
[2023-11-28] MEDS: MAG HYDROX/AL HYDROX/SIMETH 30 ML UDC PO STA (10:38)
[2023-11-28] MEDS: PANTOPRAZOLE 40 MG VIAL IVP STA (10:38)
[2023-11-28] MEDS: LIDOCAINE VISCOUS 2% 15 ML UDC MM STA (10:38)
[2023-11-28 10:41] LABS: BASOPHILS % (AUTO) 0.3 %; EOSINOPHILS # (AUTO) 0.1 10^3/uL (0.0-0.7); EOSINOPHILS % (AUTO) 0.4 %; HGB - HEMOGLOBIN 10.7 g/dL (12.0-16.0); LYMPHOCYTES # (AUTO) 1.8 10^3/uL (1.5-3.5); LYMPHOCYTES % (AUTO) 13.1 %; MEAN CORPUSCULAR HEMOGLOBIN 28.2 pg (27.0-31.0); MEAN CORPUSCULAR HGB CONC 33.4 g/dL (32.0-36.0); MEAN CORPUSCULAR VOLUME 84.4 fL (81.0-99.0); MEAN PLATELET VOLUME 10.7 fL (7.9-10.8); MONOCYTES # (AUTO) 1.3 10^3/uL (0.0-1.0); MONOCYTES % (AUTO) 9.7 %; NEUTROPHILS % (AUTO) 73.6 %; PLT - PLATELET COUNT 189 10^3/uL (130-450); RED BLOOD COUNT 3.79 10^6/uL (4.20-5.40); RED CELL DISTRIBUTION WIDTH 13.5 % (12.0-15.0); WHITE BLOOD COUNT 13.6 x10^3/uL (4.8-10.8)
[2023-11-28 10:55] LABS: ALBUMIN 3.7 g/dL (3.2-5.5); ALBUMIN/GLOBULIN RATIO 1.4 (1.0-2.2); BILIRUBIN,TOTAL 0.3 mg/dL (0.2-1.0); CALCIUM 9.4 mg/dL (8.5-10.3); CREATININE 0.5 mg/dL (0.6-1.3); POTASSIUM 3.7 mmol/L (3.5-4.5); TOTAL PROTEIN 6.4 g/dL (6.4-8.9)
[2023-11-28 12:08] VITALS: BP 126/86; O2SAT 99
== END 2023-11-28 11:51 | disposition home or self-care (01) ==
LOC: ED 09:40
DX: O26.893 Other specified pregnancy related conditions, third trimester (principal); Z3A.31 31 weeks gestation of pregnancy; K21.9 Gastro-esophageal reflux disease without esophagitis; Z79.899 Other long term (current) drug therapy
CPT/HCPCS: 36415; 80053; 85025; 93005; 96361; 96374; 99283; A9270

== ENCOUNTER 2023-12-06 10:38 | Outpatient (CLI) | payer OTHER ==
[2023-12-06 11:01] VITALS: BP 113/72; O2SAT 97
--- NOTE | 2023-12-06 12:18 | PROCEDURE REPORT ---
- HPI Diagnosis/Indication for NST: Other (Placental abruption) Current EDU 01/26/24 Gestation 32 Weeks and 5 Days 1 Para 0 Vital Signs Temperature 98.4 F 12/06/23 10:54 Heart Rate 87 12/06/23 10:54 Respiratory Rate 16 12/06/23 10:54 Blood Pressure 113/72 12/06/23 10:54 O2 Saturation 97 12/06/23 10:54 Temperature 98.4 F 12/06/23 10:54 Heart Rate 87 12/06/23 10:54 Respiratory Rate 16 12/06/23 10:54 Blood Pressure 113/72 12/06/23 10:54 O2 Saturation 97 12/06/23 10:54 If not protocol: Oxygen Flow, liters/minute - NST Procedure NST Procedure Start Date 12/06/23 Start Time 10:47 Stop Time 11:21 Vibroacoustic Stimulation Used No Patient States Movement Yes EFM: 150s, moderate variability, positive accelerations 15x15, no decelerations [place]: No contractions NST reactive/Cat 1 Performed and read 12/06/23 - Results and Plan Findings/Impression: 22yo at 32.5w sent from office for tachycardia noted on NST, scheduled for monitoring for placental abruption complicating - NST reactive - Follow up as scheduled 12/13/23
== END 2023-12-06 11:25 | disposition home or self-care (01) ==
LOC: WFO 10:38 → FBP 10:39 → WFO 11:25
PROVIDERS: ATTEND Obstetrics & Gynecology
DX: O45.93 Premature separation of placenta, unspecified, third trimester (principal); O36.8330 Maternal care for abnormalities of the fetal heart rate or rhythm, third trimester, not applicable or unspecified; Z3A.32 32 weeks gestation of pregnancy
CPT/HCPCS: 59025; 99214

== ENCOUNTER 2023-12-10 09:56 | Outpatient (CLI) | payer OTHER ==
[2023-12-10 10:28] VITALS: BP 116/70
--- NOTE | 2023-12-13 09:23 | PROCEDURE REPORT ---
- HPI Diagnosis/Indication for NST: Other (Placental abruption) Current EDU 01/26/24 Gestation 33 Weeks and 2 Days 1 Para 0 Vital Signs Temperature 98.1 F 12/10/23 10:10 Heart Rate 110 H 12/10/23 10:10 Respiratory Rate 17 12/10/23 10:10 Blood Pressure 116/70 12/10/23 10:10 Temperature 98.1 F 12/10/23 10:10 Heart Rate 110 H 12/10/23 10:10 Respiratory Rate 17 12/10/23 10:10 Blood Pressure 116/70 12/10/23 10:10 O2 Saturation If not protocol: Oxygen Flow, liters/minute - NST Procedure NST Procedure Start Date 12/10/23 Start Time 10:06 Stop Time 10:30 Vibroacoustic Stimulation Used No Patient States Movement Yes - Results and Plan Findings/Impression: Reactive Plan: Follow up as scheduled.
== END 2023-12-10 10:30 | disposition home or self-care (01) ==
LOC: WFO 09:56 → FBP 09:59 → WFO 10:30
PROVIDERS: ATTEND Obstetrics & Gynecology
DX: O45.93 Premature separation of placenta, unspecified, third trimester (principal); Z3A.33 33 weeks gestation of pregnancy
CPT/HCPCS: 59025

== ENCOUNTER 2023-12-18 16:47 | Outpatient (CLI) | payer OTHER ==
--- NOTE | 2023-12-19 11:06 | Ultrasound Report ---
PROCEDURE: OB Follow up INDICATIONS: PLACENTAL ABRUPTION OUTSIDE/PRIOR DATING DATA: Last menstrual period (LMP): 04/03/2023. LMP-based estimated date of delivery (JEROME): 01/08/2024. First dating scan (date and location): 07/12/2023. Estimated date of delivery (JEROME) from first dating scan: 01/26/2024. The below data below was generated using the ultrasound JEROME of 01/26/2024 TECHNIQUE: Real-time scanning was performed of the fetus, with image documentation and biometric measurements. Endovaginal scanning: Not performed. COMPARISON: 11/21/2023, 07/12/2023 FINDINGS: General: A single living intrauterine gestation is present. Presentation: Vertex Placenta: Placental position is anterior, without previa. Amniotic fluid index: 16.5 cm, within normal limits for gestational age. heart rate: 141 beats per minute. Maternal cervical canal not imaged. biometrics: Biparietal diameter: 8.9 cm, 35 weeks 6 days, 86 percentile Head circumference: 32.2 cm, 36 weeks 3 days, 66 percentile Abdominal circumference: 28.2 cm, 32 weeks 1 day, 5.6 percentile Femur length: 6.2 cm, 32 weeks 2 days, 4.0 percentile Estimated gestational age from initial scan: 34 weeks 3 days Composite gestational age from present scan: 34 weeks 1 day Estimated weight and percentile: 2089.3 g, 11.2 percentile Measurement variability in biometric dating: +/- 10 days from 12-20 weeks gestation, +/- 2 weeks from 20-30 weeks gestation, +/- 3 weeks at 30 weeks gestation or more. Other: Prominent placental [place]. IMPRESSION: Single living intrauterine at 34 weeks 3 days, JEROME of 01/26/2024. Estimated weight of 2089 g, 11th percentile. Reviewed by: Brenton Daniels MD on 12/19/2023 11:05 AM PDT Approved by: Brenton Daniels MD on 12/19/2023 11:05 AM PDT Station ID: [id number]
== END 2023-12-18 16:48 | disposition home or self-care (01) ==
LOC: DI 16:47
PROVIDERS: ATTEND Nurse Practitioner
DX: O45.93 Premature separation of placenta, unspecified, third trimester (principal); Z3A.34 34 weeks gestation of pregnancy

== ENCOUNTER 2024-01-10 08:00 | Outpatient (CLI) | payer OTHER | END 2024-01-10 23:59 | disposition home or self-care (01) | LOC: LAB.WC 08:00 | PROVIDERS: ATTEND Obstetrics & Gynecology | DX: Z36.85 Encounter for antenatal screening for Streptococcus B (principal) | CPT/HCPCS: 87077; 87081; 87181; 87797 ==

== ENCOUNTER 2024-01-15 15:34 | Inpatient (IN) | payer OTHER ==
[2024-01-15 16:31] LABS: BASOPHILS % (AUTO) 0.3 %; EOSINOPHILS % (AUTO) 0.4 %; HCT - HEMATOCRIT 38.8 % (37.0-47.0); HGB - HEMOGLOBIN 12.8 g/dL (12.0-16.0); LYMPHOCYTES # (AUTO) 2.4 10^3/uL (1.5-3.5); LYMPHOCYTES % (AUTO) 21.6 %; MEAN CORPUSCULAR HEMOGLOBIN 28.2 pg (27.0-31.0); MEAN CORPUSCULAR VOLUME 85.5 fL (81.0-99.0); MEAN PLATELET VOLUME 12.5 fL (7.9-10.8); MONOCYTES # (AUTO) 0.9 10^3/uL (0.0-1.0); MONOCYTES % (AUTO) 7.9 %; NEUTROPHILS # (AUTO) 7.6 10^3/uL (1.5-6.6); NEUTROPHILS % (AUTO) 69.1 %; PLT - PLATELET COUNT 164 10^3/uL (130-450); RED BLOOD COUNT 4.54 10^6/uL (4.20-5.40)
[2024-01-15 16:35] LABS: RUPTURE OF MEMBRANES PLUS POSITIVE (NEGATIVE)
[2024-01-15 16:43] LABS: CREATININE,URINE 97.7 mg/dL; PROTEIN/CREATININE RATIO,URINE 0.2 (<=0.2)
[2024-01-15] MEDS ORDERED: METHYLERGONOVINE 0.2 MG/ML VIAL IM PRN (16:43)
[2024-01-15] MEDS ORDERED: OXYTOCIN 10 UNIT/ML VIAL IM PRN (16:43)
[2024-01-15] MEDS ORDERED: TERBUTALINE 1 MG/ML VIAL SUBQ PRN (16:43)
[2024-01-15] MEDS ORDERED: fentaNYL 100 MCG/2 ML VIAL IVP PRN (16:43)
[2024-01-15] MEDS ORDERED: miSOPROStoL 200 MCG TABLET PR PRN (16:43)
[2024-01-15] MEDS ORDERED: SODIUM CHLORIDE FLUSH 0.9% 10 ML SYRINGE IVP PRN (16:43)
[2024-01-15] MEDS ORDERED: CARBOPROST TROMETHAMINE 250 MCG/ML VIAL IM PRN (16:43)
[2024-01-15] MEDS ORDERED: miSOPROStoL 200 MCG TABLET BC PRN (16:43)
[2024-01-15] MEDS ORDERED: TRANEXAMIC ACID IN NACL 1,000 MG/100 ML BAG IV PRN (16:43)
[2024-01-15] MEDS ORDERED: lidocaine 1% 20 ML MDV ID PRN (16:43)
[2024-01-15 16:45] LABS: ALBUMIN 3.6 g/dL (3.2-5.5); ALBUMIN/GLOBULIN RATIO 1.3 (1.0-2.2); BILIRUBIN,TOTAL 0.4 mg/dL (0.2-1.0); CALCIUM 9.8 mg/dL (8.5-10.3); CREATININE 0.6 mg/dL (0.6-1.3); POTASSIUM 4.2 mmol/L (3.5-4.5); TOTAL PROTEIN 6.3 g/dL (6.4-8.9)
[2024-01-15] MEDS: ONDANSETRON 4 MG/2 ML VIAL IVP PRN (17:07)
[2024-01-15] MEDS: AMPICILLIN 2 GM in SODIUM CHLORIDE 0.9% MINIBAG 100 ML IV ONE (17:12)
[2024-01-15] MEDS: LACTATED RINGERS 1,000 ML IV PRN (17:13)
--- NOTE | 2024-01-15 17:17 | HISTORY & PHYSICAL EXAMINATION ---
Admit History - Visit Reason Visit Reason: Membranes rupture - : 1 Parity: 0 Premature: 0 Ectopic: 0 : 0 Care: positive: [facility] Risk/History: positive: Other Smoking Status: Never smoker - Mother's Labs Mother's Blood Type: positive: O Mother's RH: positive: Positive GBS: positive: Group B Strep Positive Rubella Status: positive: Immune - Other Maternal History Other Maternal History: HPI: This 23 yo @ 38+4 weeks by LMP and confirmed by 11+5 week ultrasound. She slept last night but started to contract more this morning. Taft her water break (with a gush of fluid) about 14:30 today. Clear fluid, continued to leak. Presented to L&D at about 16:00. Upon arrival her cervix was 3/90/-2 and vertex with ruptured membranes. GBS positive, no antibiotic allergies. GBS prophylaxis started with ampicillin. She desired to relax and get settled in her labor room but will likely desire an epidural soon. Feels contractions are getting stronger and closer together. No Headache, visual changes or right upper quadrant abdominal pain. Denies urinary urgency or dysuria. She has been a patient of [facility] for the duration of her . She had an episode of heavy vaginal bleeding at 31 weeks with regular, mild contractions. A clot was found on ultrasound consistent with, and she was managed as having, an abruption. She had a week long inpatient stay at [facility] and was discharged home/ back to [facility]. She has received surveillance per guidelines. Will accept blood products in the event of an emergency. ROS: All other symptoms reviewed and were negative except per HPI. LMP: 04/03/2023 JEROME by LMP: 01/08/2024 07/12/2023 /11+5 / NOT C/W dates Final JEROME: 01/26/2024 serial Exams agree Medical Hx: gastric reflux (managed by omprazole) mild anemia (taking ferrous sulfate) and depression (sertraline 100mg) Surgical Hx: None Social Hx: Monogamous with male partner. Stopped drinking alcohol due to . Denies current use of tobacco, marijuana or other recreational drugs. Former tobacco user. Reports that she is safe in current relationship. Family Hx: Denies family history of congenital anomalies, Cystic Fibrosis or chromosomal abnormalities sex: It's a GIRL!!! FOB: Shelton Avila she is also active duty [place]. from [place] chorioid plexus cysts found on non-diagnostic u/s, appears to be resolved at time of FAS. Confirmed with on-site radiologist. Pre- Weight:144.8 BMI: 22.10 Blood type: O+ Rh: Positive Antibody: NEGATIVE CBC: PLT 249 HCT: 33.7 HGB 11.5 RUB: IMMUNE VZV: IMMUNE HBsAg: NEGATIVE HepC: NR RPR/AB-EIA: NR HIV: NR PAP: Pap @ PP GC/CT: 07/23/2023 Negative HSV:Denies in self and partner Genetic testin/13 QUAD screen negative Covid:virus x2 vax x2 Flu:2022 FAS: 09/18/2023 Placenta: Anterior Cord: 3VC FRANK: 13.5cm EFW: 386g; 20.5 %tile 50gm OGCT: 10/15/23: 106 TDAP:10/31 Breast Pump:10/31 3rd trimester PLT 214 HCT 35.1 HGB 11.7 Physical exam: Normocephalic, atraumatic Heart RRR w/o M/G/R Lungs CTAB Abdomen gravid, soft, nontender. EFW 3000g FHR baseline X, moderate variability, + accelerations, no decelerations Contractions palpate moderate every 3-6 minutes with soft resting tone SVE 3/90/-2, vertex, membranes grossly ruptured Bilateral LE's no edema Mood is good. Assessment: 23 yo @ 38+4 weeks gestation by 11+5 wk U/S Early labor FHR 135, primarily Cat I tracing GBS Positive- Prophylaxis initiated Plan: Admit to [facility] for Expectant management Continuous monitoring Jacuzzi PRN. Nitrous oxide PRN. Epidural per patient request. Anticipate . Patient verbally consents to my participation in her care in my role as a student nurse complaint clerk. CHRISTIAN Pepper, Student Nurse Golf Stud Riveter (Indy Tai) - HPI Vital Signs Temperature 98.2 F 01/15/24 15:39 Heart Rate 95 01/15/24 15:39 Respiratory Rate 16 01/15/24 15:39 Blood Pressure 131/97 H 01/15/24 15:39 Temperature 98.2 F 01/15/24 15:39 Heart Rate 95 01/15/24 15:39 Respiratory Rate 16 01/15/24 15:39 Blood Pressure 133/90 H 01/15/24 16:30 O2 Saturation If not protocol: Oxygen Flow, liters/minute - NST Procedure NST Procedure Start Time 10:06 Stop Time 10:30 Meds/Allgy - Home Medications Home Medications: Ambulatory Orders Medication Instructions Recorded Confirmed Omeprazole 40 mg PO DAILY #30 cap 11/28/23 01/15/24 Pnv No.95/Ferrous Fum/Folic AC 1 tab PO DAILY 11/28/23 01/15/24 [ Caplet] Sertraline HCl 100 mg PO DAILY 11/28/23 01/15/24 Ondansetron Odt [Zofran Odt] 4 mg TL Q6H PRN 01/15/24 01/15/24 - Allergies Allergies/Adverse Reactions: Allergies Allergy/AdvReac Type Severity Reaction Status Date / Time No Known Drug Allergies Allergy Verified 11/28/23 09:48 Physical - Abdominal Exam Vital Signs: Temp Pulse Resp BP Pulse Ox O2 Flow Rate 98.2 F 95 16 133/90 H 01/15/24 15:39 01/15/24 15:39 01/15/24 15:39 01/15/24 16:30 Plan for Labor - Plan For Labor I expect patient to be DC'd or transferred within 96 hours.: Yes - Plan For Labor Plan for Labor: patient's bp is elevated. labs were collected and are all normal ruling out preeclampsia. will continue to monitor. n/v bad today but needing meds every day. Just took her zofran just before she came to hospital. Usually takes it every day. Agree with rest of Indy's assessment and plan and have seen and reviewed this with Rupinder myself. Conchita Katz MD (Conchita Katz)
[2024-01-15] MEDS ORDERED: ROPIVACAINE 0.2% 200 MG/100 ML BAG EP ONE (17:34)
[2024-01-15] MEDS ORDERED: LIDOCAINE 2%-EPI 1:100000 20 ML MDV ONE (17:34)
--- NOTE | 2024-01-15 17:43 | ANESTHESIA ---
Pre-Anesthesia VS, & Labs - Diagnosis active labor - Procedure Vaginal delivery Vital Signs: Temp Pulse Resp BP Pulse Ox O2 Flow Rate 36.8 C 95 16 133/90 H 01/15/24 15:39 01/15/24 15:39 01/15/24 15:39 01/15/24 16:30 Height: 5 ft 8 in Weight (kg): 75.2 kg Body Mass Index: 25.2 BMI Classification: Overweight - NPO Last Fluid Intake: clear liquids - Is Patient ?: Yes - Lab Results Current Lab Results: Laboratory Tests 01/15/24 16:19: Sodium 135, Potassium 4.2, Chloride 104, Carbon Dioxide 25, Anion Gap 6.0, BUN 11, Creatinine 0.6, Estimated GFR (MDRD) 126, Glucose 82, Calcium 9.8, Total Bilirubin 0.4, AST 13, ALT 9 L, Alkaline Phosphatase 132 H, Total Protein 6.3 L, Albumin 3.6, Globulin 2.7, Albumin/Globulin Ratio 1.3 01/15/24 16:19: WBC 11.0 H, RBC 4.54, Hgb 12.8, Hct 38.8, MCV 85.5, MCH 28.2, MCHC 33.0, RDW 15.0, Plt Count 164, MPV 12.5 H, Neut # (Auto) 7.6 H, Lymph # (Auto) 2.4, [place] # (Auto) 0.9, Eos # (Auto) 0.0, Baso # (Auto) 0.0, Absolute Nucleated RBC 0.00, Nucleated RBC % 0.0 01/15/24 16:19: Blood Type O POSITIVE, Antibody Screen NEGATIVE Lab results reviewed: Yes Fish Bones: 01/15/24 16:19 01/15/24 16:19 Home Medications and Allergies Home Medications: Ambulatory Orders Ondansetron Odt [Zofran Odt] 4 mg TL Q6H PRN 01/15/24 Active Medications Carboprost Tromethamine (Carboprost Tromethamine 250 Mcg/Ml Vial) 250 mcg IM .ONCE PRN PRN Reason: Hemorrhage Fentanyl (Fentanyl 100 Mcg/2 Ml Vial) 50 mcg IVP Q1H PRN PRN Reason: Severe Pain (score 7-10) Lactated Ringer's (Lr) 500 mls @ 999 mls/hr IV PRN PRN PRN Reason: resuscitation/distress Last Admin: 01/15/24 17:13 Dose: 150 mls/hr Oxytocin/Sodium Chloride (Pitocin/Sodium Chloride) 500 mls @ 999 mls/hr IV PRN PRN; Protocol PRN Reason: POST- HEMORR PREVENTION Tranexamic Acid (Tranexamic 1,000 Mg/100ml-Nacl) 1,000 mg in 100 mls @ 600 mls/hr IV Q30M PRN PRN Reason: EBL >1200mL and within 3hr Ampicillin Sodium 1 gm/ Sodium (Chloride) 100 mls @ 200 mls/hr IV Q4H VAISHNAVI Lidocaine HCl (Lidocaine 1% 20 Ml Mdv) 20 ml ID .ONCE PRN PRN Reason: PERINEAL REPAIR Stop: 01/18/24 16:44 Methylergonovine Maleate (Methylergonovine 0.2 Mg/Ml Vial) 0.2 mg IM .ONCE PRN PRN Reason: Hemorrhage Misoprostol (Misoprostol 200 Mcg Tablet) 600 mcg BC .ONCE PRN PRN Reason: Hemorrhage Misoprostol (Misoprostol 200 Mcg Tablet) 800 mcg TX .ONCE PRN PRN Reason: Hemorrhage Ondansetron HCl (Ondansetron 4 Mg/2 Ml Vial) 4 mg IVP Q4HR PRN PRN Reason: Nausea / Vomiting Last Admin: 01/15/24 17:07 Dose: 4 mg Oxytocin (Oxytocin 10 Unit/Ml Vial) 10 unit IM .ONCE PRN PRN Reason: Step One if no IV access. Sodium Chloride (Sodium Chloride Flush 0.9% 10 Ml Syringe) 10 ml IVP PRN PRN PRN Reason: NEEDED PER PROVIDER ORDERS Sodium Chloride (Sodium Chloride Flush 0.9% 10 Ml Syringe) 10 ml IVP Q8H VAISHNAVI Terbutaline Sulfate (Terbutaline 1 Mg/Ml Vial) 0.25 mg SUBQ .ONCE PRN PRN Reason: Tachystole Pnv No.95/Ferrous Fum/Folic AC [ Caplet] 1 tab PO DAILY 11/28/23 Sertraline HCl 100 mg PO DAILY 11/28/23 Ondansetron Odt [Zofran Odt] 4 mg TL Q6H PRN 01/15/24 Allergies/Adverse Reactions: Allergies Allergy/AdvReac Type Severity Reaction Status Date / Time No Known Drug Allergies Allergy Verified 11/28/23 09:48 Anes History & Medical History - Anesthetic History Anesthesia Complications: reports: No previous complications - Medical History Cardiovascular: reports: None Pulmonary: reports: None Gastrointestinal: reports: None Urinary: reports: None Neuro: reports: None Musculoskeletal: reports: None Endocrine/Autoimmune: reports: None Blood Disorders: reports: None Skin: reports: None Smoking Status: Never smoker Psychosocial: reports: No issues indicated History of Cancer?: No - Obstetrical History : 1 Parity: 0 Events: reports: Other Exam General: Alert, Oriented x3, Cooperative, No acute distress Dental: WNL Mouth Openin Fingerbreadth Neck Mobility: Normal Mallampati classification: II Thyromental Distance: 4-6 cm Mental/Cognitive Status: Alert/Oriented X3, Normal for patient Plan Anesthesia Type: Epidural Consent for Procedure(s) Verified and Reviewed: Yes Code Status: Attempt Resuscitation ASA classification: 2-Mild systemic disease Is this case an emergency?: No
[2024-01-15] MEDS: SODIUM CHLORIDE FLUSH 0.9% 10 ML SYRINGE IVP SCH (17:55)
[2024-01-15] MEDS: METOCLOPRAMIDE 10 MG/2 ML VIAL IVP PRN (18:18)
[2024-01-15] MEDS ORDERED: ePHEDrine 50 MG/ML VIAL IVP PRN (18:21)
[2024-01-15] MEDS ORDERED: ROPIVACAINE 0.2% 200 MG/100 ML BAG EP PRN (18:21)
[2024-01-15] MEDS ORDERED: NALOXONE 0.4 MG/ML VIAL IVP PRN (18:21)
[2024-01-15] MEDS ORDERED: SODIUM CHLORIDE 0.9% 10 ML VIAL IVP ONE (18:33)
[2024-01-15] MEDS ORDERED: fentaNYL 100 MCG/2 ML VIAL ONE (18:33)
[2024-01-15] MEDS: OXYTOCIN/SODIUM CHLORIDE 500 ML IV PRN (20:56)
[2024-01-15] MEDS ORDERED: AMPICILLIN 1 GM in SODIUM CHLORIDE 0.9% MINIBAG 100 ML IV SCH (21:00)
[2024-01-15] MEDS ORDERED: HYDROCORTISONE 1% CREAM 28 GM TUBE PR PRN (21:24)
[2024-01-15] MEDS ORDERED: WITCH HAZEL/GLYCERIN 1 PAD TOP PRN (21:24)
--- NOTE | 2024-01-15 21:30 | DELIVERY NOTE ---
Delivery Note - Labor Labor: positive: Spontaneous - Delivery Method Delivery Method: positive: Spontaneous vaginal delivery - Presentation Presentation: positive: Vertex, SHANON - right occiput anterior - Nuchal Cord Nuchal Cord: positive: None - Anesthetic Anesthetic Type: - Amniotic Fluid Description Amniotic Fluid Description: positive: Clear - Laceration Laceration: positive: 2nd degree, Perineal - Suture Suture Type: positive: Vicryl Suture Size: positive: 3-0 - Delivery Outcome Delivery Outcome: positive: Livebirth - : positive: Placed in direct skin contact with mother, Bulb syringe, Stimulated, Warmed, Riparius used [place] sex: positive: Female - Cord Cord: positive: 3 vessels - Placenta Placenta: positive: Intact, Spontaneous, Other (4cm very thin, accessory lobe vs clot just outside placental disc attached to the membranes. Will send to pathology.) - Estimated Blood Loss Estimated Blood Loss (in cc): 200 - Post Delivery Events Post Delivery Events: positive: No post delivery events - Delivery Comments (Free Text/Narrative) Delivery Comments (Free Text/Narrative): This 23 -year-old, @ 38+4 weeks gestation by 11 week ultrasound. Presented to L&D after SROM and onset of regular contractions at 14:30 on 01/15/2024. Cervix was 3/80/-2 and Vertex presentation by exam. GBS positive, treated x1 dose. FHR pattern demonstrated primarily category I baseline prior to second stage. Precipitous labor course to follow. Epidural placed upon maternal request. She then progressed to complete/complete @ 2033 and ready to deliver. Second stage began @2034. : Normal spontaneous vaginal delivery of a viable female infant on 01/15/2024@ 2052. No nuchal cord. The was placed on maternal abdomen, stimulated, dried and placed skin to skin. Apgars 8@ 1 min, and 9 @ 5 minutes. Pitocin administered via IV for hemostasis. The umbilical cord was allowed to stop pulsating at which time it was doubly clamped by delivering provider and cut by FOB. 3VC. Cord blood was obtained. Fundal massage and gently cord traction applied for active management of the third stage, placenta delivered spontaneously and intact @2053. EBL 200. Placenta was WAS sent to pathology. Thirty units of Pitocin were added to the IV fluid and allowed to run freely. Uterine massage was performed until uterus was deemed firm. Inspection of the perineum noted a second-degree midline laceration. Laceration was repaired under adequate epidural anesthesia with 3-0 vicryl rapide, repaired in standard fashion under sterile conditions. Upon re-inspection the patient was hemostatic. Uterus again massaged and found to be firm. Needle and sponge counts were correct. Fourth stage: Uterine fundus firm and there is no excessive bleeding. Tissues well approximated. Skin to skin continued. Family bonding well. Both mother and baby are in stable condition. Patient understood my role as student nurse pediatric cns and verbally consented to my participation in her delivery. CHRISTIAN Pepper, Student Nurse Solar Mechanical Engineer
[2024-01-15] MEDS: ACETAMINOPHEN 500 MG TABLET PO SCH (22:54)
[2024-01-15] MEDS: IBUPROFEN 800 MG TABLET PO SCH (22:55)
--- NOTE | 2024-01-16 07:39 | PROVIDER PROGRESS NOTE ---
<Indy Tai - Last Filed: 01/16/24 08:29> Subjective - Prog Note Date Prog Note Date: 01/16/24 - Subjective Pt reports feeling: Improved Subjective: Subjective: Patient reports she is doing well. Denies headache, visual disturbances or right upper quadrant pain. Comfortable WITHOUT pain management Lochia appropriate. Denies heavy bleeding. Ambulating. Tolerating oral intake. Diet: Regular. Voiding without difficulty. Passing flatus. Denies BM. Patient is bonding with baby in room Breast feeding going well. Denies feeling lightheaded, dizzy or excessively fatigued. Objective - Vital Signs/Intake & Output Vital Signs: Vital Signs x48h Temp Pulse Resp BP Pulse Ox 01/16/24 06:26 98.4 C H 70 17 142/84 H 99 Intake & Output: Intake & Output 01/13/24 01/14/24 01/15/24 01/16/24 23:59 23:59 23:59 23:59 Intake Total 600 Output Total 150 800 Balance 450 -800 - Lab Results Fish Bones: 01/15/24 16:19 01/15/24 16:19 Other Labs: Lab Results x24hrs 01/15/24 01/15/24 01/15/24 Range/Units 16:19 16:19 16:19 WBC 11.0 H (4.8-10.8) x10^3/uL RBC 4.54 (4.20-5.40) 10^6/uL Hgb 12.8 (12.0-16.0) g/dL Hct 38.8 (37.0-47.0) % MCV 85.5 (81.0-99.0) fL MCH 28.2 (27.0-31.0) pg MCHC 33.0 (32.0-36.0) g/dL RDW 15.0 (12.0-15.0) % Plt Count 164 (130-450) 10^3/uL MPV 12.5 H (7.9-10.8) fL Neut # (Auto) 7.6 H (1.5-6.6) 10^3/uL Lymph # (Auto) 2.4 (1.5-3.5) 10^3/uL [place] # (Auto) 0.9 (0.0-1.0) 10^3/uL Eos # (Auto) 0.0 (0.0-0.7) 10^3/uL Baso # (Auto) 0.0 (0.0-0.1) 10^3/uL Absolute Nucleated RBC 0.00 x10^3/uL Nucleated RBC % 0.0 /100WBC Sodium 135 (135-145) mmol/L Potassium 4.2 (3.5-4.5) mmol/L Chloride 104 (101-111) mmol/L Carbon Dioxide 25 (21-32) mmol/L Anion Gap 6.0 (6-13) BUN 11 (6-20) mg/dL Creatinine 0.6 (0.6-1.3) mg/dL Estimated GFR (MDRD) 126 (>89) Glucose 82 (74-104) mg/dL Calcium 9.8 (8.5-10.3) mg/dL Total Bilirubin 0.4 (0.2-1.0) mg/dL AST 13 (10-42) IU/L ALT 9 L (10-60) IU/L Alkaline Phosphatase 132 H (42-121) IU/L Total Protein 6.3 L (6.4-8.9) g/dL Albumin 3.6 (3.2-5.5) g/dL Globulin 2.7 (2.1-4.2) g/dL Albumin/Globulin Ratio 1.3 (1.0-2.2) Urine Creatinine 97.7 mg/dL Ur Total Protein Timed 15 mg/dL Protein/Creatinin Ratio 0.2 (<=0.2) Membranes Rupture (NEGATIVE) Blood Type Antibody Screen 01/15/24 01/15/24 Range/Units 16:19 16:10 WBC (4.8-10.8) x10^3/uL RBC (4.20-5.40) 10^6/uL Hgb (12.0-16.0) g/dL Hct (37.0-47.0) % MCV (81.0-99.0) fL MCH (27.0-31.0) pg MCHC (32.0-36.0) g/dL RDW (12.0-15.0) % Plt Count (130-450) 10^3/uL MPV (7.9-10.8) fL Neut # (Auto) (1.5-6.6) 10^3/uL Lymph # (Auto) (1.5-3.5) 10^3/uL [place] # (Auto) (0.0-1.0) 10^3/uL Eos # (Auto) (0.0-0.7) 10^3/uL Baso # (Auto) (0.0-0.1) 10^3/uL Absolute Nucleated RBC x10^3/uL Nucleated RBC % /100WBC Sodium (135-145) mmol/L Potassium (3.5-4.5) mmol/L Chloride (101-111) mmol/L Carbon Dioxide (21-32) mmol/L Anion Gap (6-13) BUN (6-20) mg/dL Creatinine (0.6-1.3) mg/dL Estimated GFR (MDRD) (>89) Glucose (74-104) mg/dL Calcium (8.5-10.3) mg/dL Total Bilirubin (0.2-1.0) mg/dL AST (10-42) IU/L ALT (10-60) IU/L Alkaline Phosphatase (42-121) IU/L Total Protein (6.4-8.9) g/dL Albumin (3.2-5.5) g/dL Globulin (2.1-4.2) g/dL Albumin/Globulin Ratio (1.0-2.2) Urine Creatinine mg/dL Ur Total Protein Timed mg/dL Protein/Creatinin Ratio (<=0.2) Membranes Rupture POSITIVE A (NEGATIVE) Blood Type O POSITIVE Antibody Screen NEGATIVE - Other Results/Comments Other Results/Comments: Objective General: Alert, oriented, no apparent distress. Cardiovascular: No edema. Regular rate. Regular rhythm. Lungs: No increased work of breathing. Abdomen: Uterus firm. Below umbilicus. Extremities: No pain on palpation. Distal pulses intact. ABX Reporting Has patient been on IV antibiotics over the past 48 hours?: Yes Assessment/Plan - Problem List (1) Vaginal delivery Impression: day 1. 23 yo s/p on 01/15/2024 - Routine care - Anticipate discharge tomorrow evening. (2) Perineal laceration during delivery, delivered Impression: Reviewed perineal care (3) Mother currently breast-feeding Impression: Continue to support Discuss support (4) Elevated blood pressure reading Impression: Review preeclamptic precautions. Continue to monitor BP. Will consider repeating labs with further elevated pressures. <Andrés Barnhart - Last Filed: 01/16/24 09:10> Objective - Vital Signs/Intake & Output Vital Signs: Vital Signs x48h Temp Pulse Resp BP Pulse Ox 01/16/24 06:26 209.1 F H 70 17 142/84 H 99 Intake & Output: Intake & Output 01/13/24 01/14/24 01/15/24 01/16/24 23:59 23:59 23:59 23:59 Intake Total 600 Output Total 150 800 Balance 450 -800 - Lab Results Fish Bones: 01/15/24 16:19 01/15/24 16:19 Other Labs: Lab Results x24hrs 01/15/24 01/15/24 01/15/24 Range/Units 16:19 16:19 16:19 WBC 11.0 H (4.8-10.8) x10^3/uL RBC 4.54 (4.20-5.40) 10^6/uL Hgb 12.8 (12.0-16.0) g/dL Hct 38.8 (37.0-47.0) % MCV 85.5 (81.0-99.0) fL MCH 28.2 (27.0-31.0) pg MCHC 33.0 (32.0-36.0) g/dL RDW 15.0 (12.0-15.0) % Plt Count 164 (130-450) 10^3/uL MPV 12.5 H (7.9-10.8) fL Neut # (Auto) 7.6 H (1.5-6.6) 10^3/uL Lymph # (Auto) 2.4 (1.5-3.5) 10^3/uL [place] # (Auto) 0.9 (0.0-1.0) 10^3/uL Eos # (Auto) 0.0 (0.0-0.7) 10^3/uL Baso # (Auto) 0.0 (0.0-0.1) 10^3/uL Absolute Nucleated RBC 0.00 x10^3/uL Nucleated RBC % 0.0 /100WBC Sodium 135 (135-145) mmol/L Potassium 4.2 (3.5-4.5) mmol/L Chloride 104 (101-111) mmol/L Carbon Dioxide 25 (21-32) mmol/L Anion Gap 6.0 (6-13) BUN 11 (6-20) mg/dL Creatinine 0.6 (0.6-1.3) mg/dL Estimated GFR (MDRD) 126 (>89) Glucose 82 (74-104) mg/dL Calcium 9.8 (8.5-10.3) mg/dL Total Bilirubin 0.4 (0.2-1.0) mg/dL AST 13 (10-42) IU/L ALT 9 L (10-60) IU/L Alkaline Phosphatase 132 H (42-121) IU/L Total Protein 6.3 L (6.4-8.9) g/dL Albumin 3.6 (3.2-5.5) g/dL Globulin 2.7 (2.1-4.2) g/dL Albumin/Globulin Ratio 1.3 (1.0-2.2) Urine Creatinine 97.7 mg/dL Ur Total Protein Timed 15 mg/dL Protein/Creatinin Ratio 0.2 (<=0.2) Membranes Rupture (NEGATIVE) Blood Type Antibody Screen 01/15/24 01/15/24 Range/Units 16:19 16:10 WBC (4.8-10.8) x10^3/uL RBC (4.20-5.40) 10^6/uL Hgb (12.0-16.0) g/dL Hct (37.0-47.0) % MCV (81.0-99.0) fL MCH (27.0-31.0) pg MCHC (32.0-36.0) g/dL RDW (12.0-15.0) % Plt Count (130-450) 10^3/uL MPV (7.9-10.8) fL Neut # (Auto) (1.5-6.6) 10^3/uL Lymph # (Auto) (1.5-3.5) 10^3/uL [place] # (Auto) (0.0-1.0) 10^3/uL Eos # (Auto) (0.0-0.7) 10^3/uL Baso # (Auto) (0.0-0.1) 10^3/uL Absolute Nucleated RBC x10^3/uL Nucleated RBC % /100WBC Sodium (135-145) mmol/L Potassium (3.5-4.5) mmol/L Chloride (101-111) mmol/L Carbon Dioxide (21-32) mmol/L Anion Gap (6-13) BUN (6-20) mg/dL Creatinine (0.6-1.3) mg/dL Estimated GFR (MDRD) (>89) Glucose (74-104) mg/dL Calcium (8.5-10.3) mg/dL Total Bilirubin (0.2-1.0) mg/dL AST (10-42) IU/L ALT (10-60) IU/L Alkaline Phosphatase (42-121) IU/L Total Protein (6.4-8.9) g/dL Albumin (3.2-5.5) g/dL Globulin (2.1-4.2) g/dL Albumin/Globulin Ratio (1.0-2.2) Urine Creatinine mg/dL Ur Total Protein Timed mg/dL Protein/Creatinin Ratio (<=0.2) Membranes Rupture POSITIVE A (NEGATIVE) Blood Type O POSITIVE Antibody Screen NEGATIVE Assessment/Plan - Problem List (1) Elevated blood pressure reading Impression: Examined patient with CHRISTIAN Tai. Agree with plan. Meets criteria for gestational hypertension. No symptoms or lab abnormalities. Will plan on staying until tomorrow as we continue to assess. Discussed symptoms and precautions. Anticipate discharge tomorrow.
--- NOTE | 2024-01-16 10:14 | PHARMACY PROGRESS NOTE ---
- Best Possible Medication History Admit Date and Time: 01/15/24 1644 Processed by: Pharmacy Medications reviewed in ED?: No Medication History completed: Yes Patient Interview: Pt unable to participate Secondary Source(s): Physician records, Pharmacy records, Insurance records As the person ultimately responsible for medication therapy, providers are able to order a medication from an existing home medication list in [facility] via the "Reconcile Routine" prior to Confirmation of that medication by desktop support consultant. Such practice is discouraged except when the physician, in their clinical judgment, deems that a medical need exists for a medication without regard to previous use.
[2024-01-16] MEDS ORDERED: SERTRALINE 50 MG TABLET PO SCH ×2 (21:00→22:00)
[2024-01-17] MEDS: DOCUSATE SODIUM 100 MG CAPSULE PO SCH (08:42)
[2024-01-17 08:58] VITALS: BP 124/88; O2SAT 100
--- NOTE | 2024-01-17 11:08 | Discharge Plan ---
Discharge Plan Problem Reviewed?: Yes Diet: Regular Activity Restrictions: No Restrictions Shower Restrictions: No Driving Restrictions: No Weight Bearing: Full Weight No Smoking: If you smoke, Please STOP! Call for help. Disposition: 01 Home, Self Care Condition: Good Instruction Topics: Breastfeed Holds, Vaginal, Self Care Follow-up with: Indy Tai ARNP [Provider Admit Priv/Credential] -
--- NOTE | 2024-01-17 11:10 | DISCHARGE SUMMARY ---
Discharge Summary Admit Date: 01/15/24 Discharge Date: 01/17/24 Discharging Provider: Dr. Janet Strong Code Status: Attempt Resuscitation Condition at Discharge: Good Discharge Disposition: 01 Home, Self Care - HPI History of Present Illness: Date of Admission: 01/15/2024 Date of Discharge: 01/17/2024 Diagnosis on admission: 23 yo @ 38+4 weeks gestation by 11+5 wk U/S -Early labor -FHR 135, primarily Cat I tracing -GBS Positive- Prophylaxis initiated Diagnosis on Discharge 23 yo s/p term on 01/15/2024 @ 2052 - 2nd degree perineal laceration with repair. - exclusive . Brief History: She is a patient of [facility] who presented on 01/15/2024 after SROM and in early labor. She was found to be segundo regularly and quickly progressed from 3cm to complete. Effective epidural anesthesia. She spontaneously delivered a viable female on 01/15/2024 @ 2052, apgars 9 and 9 at 1 and 5 minutes respectively. EBL 200 ml. 2nd degree perineal lac with repair. Met criteria during her stay for gestational hypertension. Normal labs and no severe features. She has been doing well in her course. She is ambulating and tolerating a regular diet. She is urinating without difficulty and her lochia is normal. Her pain is well controlled without narcotic management. She will be discharged to home today on day 2 and encouraged to manage discomfort with OTC PRN IBU, tylenol and colace. Has good support both in the hospital with her Mother and partner/FOB. She intends to follow up with at [facility] in 1 week. She has been given precautions to call if she has any any new or worsening sx such as fevers, chills, abdominal pain, increasing bleeding, or foul smelling vaginal lochia. Discussed mood changes in detail. Encouraged to continue sertraline 100mg daily (has current prescription). preeclamptic precautions reviewed as well. CHRISTIAN Pepper, Student Nurse Program Clinician - ALLERGIES Allergies/Adverse Reactions: Allergies Allergy/AdvReac Type Severity Reaction Status Date / Time No Known Drug Allergies Allergy Verified 11/28/23 09:48 - MEDICATIONS Home Medications: Ambulatory Orders Medication Instructions Recorded Confirmed Omeprazole 40 mg PO DAILY #30 cap 11/28/23 01/15/24 Pnv No.95/Ferrous Fum/Folic AC 1 tab PO DAILY 11/28/23 01/15/24 [ Caplet] Sertraline HCl 100 mg PO DAILY 11/28/23 01/15/24 Ondansetron Odt [Zofran Odt] 4 mg TL Q6H PRN 01/15/24 01/15/24 - PHYSICAL EXAM AT DISCHARGE General Appearance: positive: No acute distress Eyes Bilateral: positive: Normal inspection Neck: positive: Nml inspection Respiratory: positive: No respiratory distress Cardiovascular: positive: Regular rate & rhythm Peripheral Pulses: positive: 2+ Abdomen: positive: Non-tender (normal uterine involution. ) Skin: positive: Color nml Extremities: positive: Non-tender Neurologic/Psychiatric: positive: Oriented x3 - LABS Result Diagrams: 01/15/24 16:19 01/15/24 16:19 - FOLLOW UP Follow Up: 1 week at [facility] - TIME SPENT Time Spent in Discharge (Minutes): 30
--- NOTE | 2024-01-17 13:10 | Labor Flowsheet ---
Labor Flowsheet Datetime Report Generated by CPN: 01/17/2024 13:10 Datetime: 01/17/2024 08:36 VITAL SIGNS NBP Sys/Kandice/Mean (mmHg): 124 : 85 : 95 Pulse: 61 Datetime: 01/16/2024 13:30 SpO2 (%): 98 Datetime: 01/15/2024 23:00 Stage of : Recovery Respirations: 18 PAIN Pain Scale: 0 Pain Presence: None/Denies Datetime: 01/15/2024 22:01 Vital Sign Comments: pt movign around at this time. instructed pt to keep arm still while b/p cuff is going off. RN will continue to monitor. Datetime: 01/15/2024 21:00 Temperature Route: Oral Datetime: 01/15/2024 20:55 LaborFlag: Labor Datetime: 01/15/2024 20:51 Comments: FHT undetectable tracing maternal HR Datetime: 01/15/2024 20:47 UTERINE ACTIVITY Monitor Mode: External Frequency (min): 1-2min Quality: Moderate Duration (sec): 60-90sec Pattern: Normal: <= 5 Contractions in 10 Minutes Resting Tone (Palpate): Relaxed ASSESSMENT A Monitor Mode: External US FHR Baseline Rate : 120 FHR Baseline Changes: No Baseline Change Variability: Moderate 6-25 bpm Accelerations: 15X15 Decelerations: None Category: Category I Datetime: 01/15/2024 20:43 Communication Comments: pt pushing Datetime: 01/15/2024 20:30 Oxygen Method: Room Air Datetime: 01/15/2024 18:34 Epidural Procedure Other: Redose Datetime: 01/15/2024 18:29 VAGINAL EXAM Dilatation (cm): 5.0 Effacement (%): 100 Station: -1 Exam by: Indy Cervix, Consistency: Soft Cervix, Position: Midposition Datetime: 01/15/2024 18:28 Anesthesia Comments: called for a bolus Datetime: 01/15/2024 18:25 Medication Comments: reglan 5 mg IV Datetime: 01/15/2024 18:05 Epidural Procedure: Loading Dose Datetime: 01/15/2024 17:48 PROCEDURE TIME OUT Procedure Verify: Correct Patient Identity; Correct Side and Site are Marked; Accurate Procedure Co nsent Form; Agreement on Procedure to be Done; Correct Patient Position ANESTHESIA Anesthesia Plans: Epidural Epidural Positioning: Sitting Datetime: 01/15/2024 17:33 Pain Type: Contraction Pain Coping: Breathing Through Contractions Membrane Status: Ruptured Membranes Rupture Method: Spontaneous Amniotic Fluid Color: Clear Amniotic Fluid Amount: Moderate Amniotic Fluid Odor: Normal Membrane Comments: ROM plus positive Patient Position/Activity: Left Lateral Comfort Measures: Family Support Consults: Anesthesia Datetime: 01/15/2024 17:23 Antibiotics: Ampicillin IV 2 Gm Antiemetics/Antacids: Zofran (mg) @ 4 Datetime: 01/15/2024 17:00 Patient Care Comments: patient in jetted tub Datetime: 01/15/2024 16:45 PATIENT CARE IV/Blood Work: IV Started; IV Bolus Started Datetime: 12/06/2023 11:48 Membranes Ruptured Date/Time: 01/15/2024 14:30 Datetime: 11/21/2023 11:39 MEDICATIONS Magnesium/Antihypertensives: Magnesium Sulfate IV Bolus (Gm) @ 4 COMMUNICATION Communication: RN at Bedside; RN Reviewed Strip
== END 2024-01-17 12:50 | disposition home or self-care (01) | DRG 807 ==
LOC: WFO 15:34 → FBP 15:35 → WFO 16:54
PROVIDERS: ADMIT Obstetrics & Gynecology; ATTEND Obstetrics & Gynecology
PROC: 10E0XZZ Delivery of Products of Conception, External Approach (ICD-10-PCS; principal; 2024-01-16)
PROC: 0KQM0ZZ Repair Perineum Muscle, Open Approach (ICD-10-PCS; 2024-01-16)
DX: O99.824 Streptococcus B carrier state complicating childbirth (principal); Z37.0 Single live birth; Z3A.38 38 weeks gestation of pregnancy; O70.1 Second degree perineal laceration during delivery; O13.4 Gestational [pregnancy-induced] hypertension without significant proteinuria, complicating childbirth; O99.62 Diseases of the digestive system complicating childbirth; O99.344 Other mental disorders complicating childbirth; O99.02 Anemia complicating childbirth; K21.9 Gastro-esophageal reflux disease without esophagitis; F32.A Depression, unspecified
CPT/HCPCS: 36415; 59409; 80053; 82570; 84112; 84156; 85025; 86850; 86900; 86901; 99215; A9270; J2765; J7120

== ENCOUNTER 2024-02-08 15:44 | Outpatient (CLI) | payer OTHER ==
[2024-02-08 16:08] LABS: BILIRUBIN,URINE NEGATIVE (NEGATIVE); GLUCOSE, URINE (UA) NEGATIVE (NEGATIVE); KETONES,URINE (UA) TRACE mg/dL (NEGATIVE); LEUKOCYTE ESTERASE, URINE MODERATE (NEGATIVE); NITRITE,URINE POSITIVE (NEGATIVE); OCCULT BLOOD,URINE LARGE (NEGATIVE); PH,URINE 6.5 PH (5.0-7.5); PROTEIN,URINE 100 mg/dL (NEGATIVE); UROBILINOGEN,URINE 1 (NORMAL) E.U./dL (NORMAL)
[2024-02-08 16:14] LABS: CLARITY,URINE CLOUDY (CLEAR)
[2024-02-08 16:18] LABS: BACTERIA,URINE Moderate /HPF (None Seen); RBC,URINE TNTC /HPF (0-5); SQUAMOUS EPITHELIAL CELL,UR FEW Squamous (<= Few)
[2024-02-09 04:50] LABS: BACTERIAL VAGINOSIS DNA POSITIVE (NEGATIVE); CANDIDA GLABRATA DNA NEGATIVE (NEGATIVE); CANDIDA GROUP DNA NEGATIVE (NEGATIVE); CANDIDA KRUSEI DNA NEGATIVE (NEGATIVE); TRICHOMONAS VAGINALIS DNA NEGATIVE (NEGATIVE)
== END 2024-02-08 15:45 | disposition home or self-care (01) ==
LOC: LAB.WC 15:44
PROVIDERS: ATTEND Nurse Practitioner
DX: R35.0 Frequency of micturition (principal); L29.8 Other pruritus
CPT/HCPCS: 81001; 81514; 87086; 87181

== ENCOUNTER 2024-02-18 17:10 | Outpatient (CLI) | payer OTHER | END 2024-02-18 17:11 | disposition home or self-care (01) | LOC: LAB.N 17:10 | PROVIDERS: ATTEND Nurse Practitioner | DX: Z32.01 Encounter for pregnancy test, result positive (principal) | CPT/HCPCS: 36415; 84702 ==